=== PATIENT | female | born 2000 | race Caucasian/White ===

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

== ENCOUNTER 2023-11-25 18:15 | Emergency (ER) | payer OTHER, MEDICAID ==
[~2023-11-25] VITALS: Ht 160 cm; Wt 68.3 kg
[2023-11-25 18:20] VITALS: BP 123/79; PULSE 85; RESP 16; O2SAT 97
[2023-11-25] MEDS ORDERED: DOXY-448 PO (19:40)
[2023-11-25] MEDS ORDERED: ZOFR4T PO (19:40)
[2023-11-25] MEDS ORDERED: ACET500T58 PO (19:40)
[2023-11-25] MEDS: DOXYCYCLINE 100 MG TAB/CAP PO ONE (19:48)
[2023-11-25] MEDS: ONDANSETRON ODT 4 MG TAB PO ONE (19:48)
[2023-11-25] MEDS: ACETAMINOPHEN 325 MG TAB PO ONE (19:49)
[2023-11-25] MEDS: TETANUS-DIPTH-ACEL PERTUSSIS 0.5ML SYR Tdap IM ONE (19:49)
== END 2023-11-25 20:00 | disposition home or self-care (01) ==
LOC: ER 18:15
DX: T14.8XXA Other injury of unspecified body region, initial encounter (principal); R51.9 Headache, unspecified; J45.909 Unspecified asthma, uncomplicated; F17.210 Nicotine dependence, cigarettes, uncomplicated; F15.90 Other stimulant use, unspecified, uncomplicated; W57.XXXA Bitten or stung by nonvenomous insect and other nonvenomous arthropods, initial encounter; Y93.89 Activity, other specified; Y92.89 Other specified places as the place of occurrence of the external cause; Y99.8 Other external cause status
CPT/HCPCS: 81025; 90471; 90715; 99284; Q0162